=== PATIENT | female | born 1940 | race Hispanic/Latino ===

== ENCOUNTER 2023-08-21 08:17 | Observation (INO) ==
[2023-08-13 12:59] LABS: Basophils # (Auto) 0.02 K/mcL (0.00-0.30); Basophils % (Auto) 0.5 % (0.0-2.0); Eosinophils # (Auto) 0.09 K/mcL (0.00-0.70); Eosinophils % (Auto) 2.1 % (0.0-7.0); Hematocrit 29.8 % (34.1-44.9); Hemoglobin 9.5 g/dL (11.2-15.7); Lymphocytes % (Auto) 34.3 % (15.5-49.0); Mean Cell Volume 94.9 fL (80.0-100.0); Mean Corpuscular HGB Conc 31.9 g/dL (31.0-36.0); Mean Platelet Volume 10.1 fL (8.8-12.5); Monocytes # (Auto) 0.52 K/mcL (0.10-0.90); Monocytes % (Auto) 11.9 % (1.0-12.0); Neutrophils % (Auto) 51.2 % (38.0-78.0); Platelet Count 182 K/mcL (140-440); RBC 3.14 M/mcL (3.59-5.38); Red Cell Distribution Width 13.8 % (11.5-14.5); WBC 4.4 K/mcL (4.5-11.0)
[2023-08-13 14:21] LABS: ALT/SGPT 10 U/L (<40); AST/SGOT 16 U/L (<32); Albumin 4.2 gm/dL (3.2-5.2); Albumin/Globulin Ratio 1.6 (1.0-2.3); Alkaline Phosphatase 63 U/L (39-117); Bilirubin,Total 0.4 mg/dL (0.1-1.0); Blood Urea Nitrogen 39 mg/dL (8-23); Calcium 9.6 mg/dL (8.6-10.4); Carbon Dioxide 23 mmol/L (22-30); Chloride 106 mmol/L (96-108); Globulin 2.6 gm/dL (2.2-3.7); Glomerular Filtration Rate 69; Glucose 121 mg/dL (70-105)
[2023-08-13 15:35] LABS: Hemoglobin A1C 7.1 % Hgb (4.0-6.0); INR 1.1 (0.9-1.1); Partial Thromboplastin Time 34.2 sec (20.0-37.0); Prothrombin Time 15.2 sec (11.9-14.5)
[2023-08-21] MEDS ORDERED: KETAMINE 50 MG/ML Syringe IV ONE (10:09)
[2023-08-21] MEDS ORDERED: LIDOCAINE 2% PF 5 ML VIAL ONE (10:09)
[2023-08-21] MEDS ORDERED: fentaNYL 100 MCG/2 ML VIAL ONE (10:09)
[2023-08-21] MEDS ORDERED: ONDANSETRON 4 MG/2 ML VIAL ONE (10:09)
[2023-08-21] MEDS ORDERED: PROPOFOL 200 MG/20 ML VIAL IV ONE (10:09)
[2023-08-21] MEDS ORDERED: MAGNESIUM SULFATE 2 GM/50 ML BAG IV ONE (10:09)
[2023-08-21] MEDS ORDERED: DEXAMETHASONE 10 MG/ML VIAL ONE (10:09)
[2023-08-21] MEDS: ceFAZolin 2 GM in DEXTROSE 5% IN WATER 50 ML IV SCH (11:12)
[2023-08-21] MEDS ORDERED: ROCURONIUM 10 MG/ML ML IV ONE (11:22)
[2023-08-21] MEDS ORDERED: ePHEDrine 50 MG/5 ML SYRINGE (ANEST) IV ONE (12:32)
[2023-08-21] MEDS ORDERED: ONDANSETRON 4 MG/2 ML VIAL IV PRN ×2 (12:35→13:06)
[2023-08-21] MEDS ORDERED: MEPERIDINE 25 MG/ML VIAL IV PRN (12:35)
[2023-08-21] MEDS ORDERED: IPRATROPIUM/ALBUTEROL 3 ML AMPUL.NEB NEB PRN (12:35)
[2023-08-21] MEDS ORDERED: LACTATED RINGERS 250 ML IV PRN (12:35)
[2023-08-21] MEDS ORDERED: NALOXONE HCL 0.4 MG/ML VIAL IV PRN (12:35)
[2023-08-21] MEDS ORDERED: PROMETHAZINE 25 MG/ML VIAL IV PRN (12:35)
[2023-08-21] MEDS ORDERED: SUGAMMADEX SODIUM 200 MG/2 ML VIAL IV ONE (12:40)
[2023-08-21] MEDS: ACETAMINOPHEN 1,000 MG/100 ML BAG IV ONE (12:57)
[2023-08-21] MEDS: METHOCARBAMOL 1,000 MG/10 ML VIAL IV PRN (13:17)
[2023-08-21] MEDS: fentaNYL 100 MCG/2 ML VIAL IV PRN (13:25)
[2023-08-21] MEDS: oxyCODONE IR 5 MG TABLET PO PRN (14:20)
[2023-08-21] MEDS: LACTATED RINGERS 1,000 ML IV SCH (15:06)
[2023-08-21] MEDS: 0.9 % SODIUM CHLORIDE 1,000 ML IV SCH (15:07)
[2023-08-21] MEDS: cefTRIAXone 1 GM VIAL IV SCH (15:23)
[2023-08-21] MEDS: PANTOPRAZOLE 40 MG TABLET PO SCH (16:11)
[2023-08-21] MEDS: amLODIPine 10 MG TABLET PO ONE (16:11)
[2023-08-21] MEDS: METOCLOPRAMIDE 10 MG/2 ML VIAL IV SCH (18:44)
[2023-08-21] MEDS: ACETAMINOPHEN 1,000 MG/100 ML BAG IV SCH (20:18)
[2023-08-21] MEDS: GABAPENTIN 100 MG CAPSULE PO PRN (20:19)
[2023-08-22] MEDS: LEVOTHYROXINE SODIUM 112 MCG TABLET PO SCH (08:40)
[2023-08-22] MEDS: LISINOPRIL 20 MG TABLET PO SCH (08:41)
[2023-08-22] MEDS: sitaGLIPtin 50 MG TABLET PO SCH (08:41)
[2023-08-22] MEDS: PIOGLITAZONE 15 MG TABLET PO SCH (08:42)
[2023-08-22] MEDS: amLODIPine 10 MG TABLET PO SCH (08:42)
[2023-08-22] MEDS: HYDROCHLOROTHIAZIDE 25 MG TABLET PO SCH (08:42)
== END 2023-08-23 16:49 | disposition home or self-care (01) ==
LOC: SUR 08:17 → MEDSUR 08:17
PROVIDERS: ADMIT Family Medicine Adult Medicine; ATTEND Family Medicine Adult Medicine